=== PATIENT | male | born 1990 | race Hispanic/Latino ===

== ENCOUNTER 2022-09-20 01:59 | Emergency (ER) | payer OTHER ==
[~2022-09-20] VITALS: Ht 157.5 cm; Wt 75.4 kg
[2022-09-20 02:56] VITALS: BP 148/86
[2022-09-20] MEDS ORDERED: CARB200T6 PO (04:22)
== END 2022-09-20 04:29 | disposition home or self-care (01) ==
LOC: EEVIPCON 01:59 → EDH 01:59
DX: G40.909 Epilepsy, unspecified, not intractable, without status epilepticus (principal); I10 Essential (primary) hypertension